=== PATIENT | male | born 1960 | race Hispanic/Latino ===

== ENCOUNTER → 2021-11-28 | Outpatient (CLI) | payer OTHER ==
[2021-11-28 10:29] LABS: BASOPHILS % (AUTO) 0.4 % (0.0-5.0); EOSINOPHILS % (AUTO) 12.2 % (0.0-8.0); HEMATOCRIT 38.7 % (42-54); LYMPHOCYTES % (AUTO) 27.7 % (21.0-51.0); MEAN CORPUSCULAR HEMOGLOBIN 30.2 pg (27.0-33.0); MEAN CORPUSCULAR HGB CONC 32.6 g/dL (32.0-36.0); MEAN CORPUSCULAR VOLUME 92.8 fL (79-99); NEUTROPHILS % (AUTO) 51.5 % (40.0-77.0); PLATELET COUNT (AUTO) 194 K/uL (130-400); RED BLOOD CELL COUNT(AUTO) 4.17 MIL/uL (4.50-6.20); RED CELL DISTRIBUTION WIDTH 11.8 % (11.0-15.5)
[2021-11-28 10:50] LABS: APPEARANCE,URINE CLEAR (CLEAR); BILIRUBIN,URINE NEGATIVE (NEGATIVE); COLOR,URINE YELLOW (YELLOW); GLUCOSE, URINE (UA) NEGATIVE (NEGATIVE); KETONES,URINE NEGATIVE (NEGATIVE); LEUKOCYTE ESTERASE ,URINE NEGATIVE (NEGATIVE); NITRATE,URINE NEGATIVE (NEGATIVE); OCCULT BLOOD,URINE NEGATIVE (NEGATIVE); PROTEIN,URINE NEGATIVE (NEGATIVE); UROBILINOGEN,URINE 0.2 mg/dL (0.2-1.0)
[2021-11-28 11:00] LABS: ALBUMIN 3.7 g/dL (3.5-5.0); BILIRUBIN,TOTAL 0.3 mg/dL (0.2-1.0); CREATININE 0.8 mg/dL (0.5-1.5); POTASSIUM 3.8 mmol/L (3.5-5.1); THYROID STIMULATING HORMONE 0.89 uIU/mL (0.36-3.74)
[2021-11-28 12:26] LABS: ERYTHROCYTE SEDIMENTATION RATE 8 MM/HR (0-20)
== END | disposition home or self-care (01) ==
LOC: LAB 09:43
PROVIDERS: ATTEND Nurse Practitioner Family
DX: Z12.5 Encounter for screening for malignant neoplasm of prostate (principal); Z13.1 Encounter for screening for diabetes mellitus; Z13.220 Encounter for screening for lipoid disorders; Z13.29 Encounter for screening for other suspected endocrine disorder; Z13.21 Encounter for screening for nutritional disorder; I10 Essential (primary) hypertension
CPT/HCPCS: 36415; 80053; 80061; 81003; 82306; 84153; 84154; 84439; 84443; 85025; 85651

== ENCOUNTER → 2023-07-25 | Outpatient (CLI) | payer OTHER ==
[2023-07-25 11:30] LABS: ALBUMIN 3.7 g/dL (3.5-5.0); BILIRUBIN,TOTAL 0.5 mg/dL (0.2-1.0); CREATININE 0.9 mg/dL (0.5-1.5); POTASSIUM 3.6 mmol/L (3.5-5.1); TOTAL PROTEIN, SERUM 7.2 g/dL (6.0-8.3)
== END | disposition home or self-care (01) ==
LOC: LAB 10:19
PROVIDERS: ATTEND Nurse Practitioner Family
DX: K42.9 Umbilical hernia without obstruction or gangrene (principal)
CPT/HCPCS: 36415; 80053

== ENCOUNTER → 2023-07-29 | Outpatient (CLI) | payer OTHER ==
[~2023-07-29] MED LIST: IOHEXOL-350 75 ML VIAL IV ONE
== END | disposition home or self-care (01) ==
LOC: RAH 09:49
PROVIDERS: ATTEND Nurse Practitioner Family
DX: K42.9 Umbilical hernia without obstruction or gangrene (principal); M62.89 Other specified disorders of muscle; M47.815 Spondylosis without myelopathy or radiculopathy, thoracolumbar region; K76.0 Fatty (change of) liver, not elsewhere classified
CPT/HCPCS: 74178; Q9967

== ENCOUNTER → 2023-11-21 | Outpatient (CLI) | payer OTHER ==
[2023-11-21 11:54] LABS: BASOPHILS # (AUTO) 0.03 K/uL (0.00-0.20); BASOPHILS % (AUTO) 0.4 % (0.0-5.0); EOSINOPHILS # (AUTO) 0.84 K/uL (0.00-0.70); EOSINOPHILS % (AUTO) 10.3 % (0.0-8.0); HEMATOCRIT 40.8 % (42-54); IMMATURE GRANULOCYTE ABSOLUTE 0.02 K/uL (0-1); LYMPHOCYTES # (AUTO) 1.8 K/uL (1.0-4.8); LYMPHOCYTES % (AUTO) 22.1 % (21.0-51.0); MEAN CORPUSCULAR HEMOGLOBIN 31.2 pg (27.0-33.0); MEAN CORPUSCULAR HGB CONC 33.8 g/dL (32.0-36.0); MEAN CORPUSCULAR VOLUME 92.1 fL (79-99); MONOCYTES # (AUTO) 0.5 K/uL (0.1-1.0); MONOCYTES % (AUTO) 6.5 % (3.0-13.0); NEUTROPHILS # (AUTO) 4.9 K/uL (1.8-7.7); NEUTROPHILS % (AUTO) 60.5 % (40.0-77.0); PLATELET COUNT (AUTO) 221 K/uL (130-400); RED BLOOD CELL COUNT(AUTO) 4.43 MIL/uL (4.50-6.20); RED CELL DISTRIBUTION WIDTH 11.9 % (11.0-15.5); WHITE BLOOD COUNT (AUTO) 8.1 K/uL (4.8-10.8)
[2023-11-21 11:56] LABS: APPEARANCE,URINE CLEAR (CLEAR); BILIRUBIN,URINE NEGATIVE (NEGATIVE); COLOR,URINE LIGHT-YELLOW (YELLOW); GLUCOSE, URINE (UA) NEGATIVE (NEGATIVE); KETONES,URINE NEGATIVE (NEGATIVE); LEUKOCYTE ESTERASE ,URINE NEGATIVE Leu/uL (NEGATIVE); NITRATE,URINE NEGATIVE (NEGATIVE); OCCULT BLOOD,URINE NEGATIVE (NEGATIVE); PH,URINE 6.5 (5.0-8.0); PROTEIN,URINE NEGATIVE (NEGATIVE); UROBILINOGEN,URINE 0.2 mg/dL (0.2-1.0)
[2023-11-21 12:01] LABS: ADD UA MICROSCOPIC NO
[2023-11-21 12:28] LABS: ALBUMIN 4.2 g/dL (3.5-5.0); BILIRUBIN,TOTAL 0.7 mg/dL (0.2-1.0); CREATININE 0.8 mg/dL (0.5-1.5); POTASSIUM 3.5 mmol/L (3.5-5.1); THYROID STIMULATING HORMONE 1.31 uIU/mL (0.36-3.74); TOTAL PROTEIN, SERUM 7.7 g/dL (6.0-8.3)
[2023-11-21 13:14] LABS: ERYTHROCYTE SEDIMENTATION RATE 6 MM/HR (0-20)
== END | disposition home or self-care (01) ==
LOC: LAB 11:05
PROVIDERS: ATTEND Nurse Practitioner Family
DX: Z00.00 Encounter for general adult medical examination without abnormal findings (principal); Z13.220 Encounter for screening for lipoid disorders; Z13.29 Encounter for screening for other suspected endocrine disorder; Z13.21 Encounter for screening for nutritional disorder; I10 Essential (primary) hypertension; N40.0 Benign prostatic hyperplasia without lower urinary tract symptoms; R73.09 Other abnormal glucose
CPT/HCPCS: 36415; 80053; 80061; 81003; 82306; 83036; 83525; 84439; 84443; 84481; 85025; 85651

== ENCOUNTER → 2024-05-17 | Outpatient (CLI) | payer OTHER | END | disposition home or self-care (01) | LOC: RAH 11:28 | PROVIDERS: ATTEND Nurse Practitioner Family | DX: Z13.6 Encounter for screening for cardiovascular disorders (principal) | CPT/HCPCS: 75571 ==

== ENCOUNTER → 2024-09-21 | Outpatient (CLI) | payer OTHER ==
[2024-09-21 09:29] LABS: BASOPHILS # (AUTO) 0.02 K/uL (0.00-0.20); BASOPHILS % (AUTO) 0.3 % (0.0-5.0); EOSINOPHILS # (AUTO) 1.66 K/uL (0.00-0.70); EOSINOPHILS % (AUTO) 24.5 % (0.0-8.0); HEMATOCRIT 37.4 % (42-54); IMMATURE GRANULOCYTE ABSOLUTE 0.02 K/uL (0-1); LYMPHOCYTES # (AUTO) 1.5 K/uL (1.0-4.8); LYMPHOCYTES % (AUTO) 22.6 % (21.0-51.0); MEAN CORPUSCULAR HEMOGLOBIN 31.3 pg (27.0-33.0); MEAN CORPUSCULAR HGB CONC 33.7 g/dL (32.0-36.0); MEAN CORPUSCULAR VOLUME 92.8 fL (79-99); MONOCYTES # (AUTO) 0.5 K/uL (0.1-1.0); MONOCYTES % (AUTO) 7.7 % (3.0-13.0); NEUTROPHILS % (AUTO) 44.6 % (40.0-77.0); PLATELET COUNT (AUTO) 193 K/uL (130-400); RED BLOOD CELL COUNT(AUTO) 4.03 MIL/uL (4.50-6.20); RED CELL DISTRIBUTION WIDTH 12.2 % (11.0-15.5); WHITE BLOOD COUNT (AUTO) 6.8 K/uL (4.8-10.8)
[2024-09-21 09:33] LABS: APPEARANCE,URINE CLEAR (CLEAR); BILIRUBIN,URINE NEGATIVE (NEGATIVE); COLOR,URINE YELLOW (YELLOW); GLUCOSE, URINE (UA) NEGATIVE (NEGATIVE); KETONES,URINE NEGATIVE (NEGATIVE); LEUKOCYTE ESTERASE ,URINE NEGATIVE Leu/uL (NEGATIVE); NITRATE,URINE NEGATIVE (NEGATIVE); OCCULT BLOOD,URINE NEGATIVE (NEGATIVE); PH,URINE 5.5 (5.0-8.0); PROTEIN,URINE 20 mg/dL (NEGATIVE)
[2024-09-21 09:34] LABS: ADD UA MICROSCOPIC YES
[2024-09-21 09:36] LABS: MUCUS,URINE MOD LPF (None Seen); RBC,URINE 0-1 /HPF (0-1); WBC,URINE 0-1 /HPF (0-1)
[2024-09-21 09:42] LABS: ALBUMIN 3.6 g/dL (3.5-5.0); BILIRUBIN,TOTAL 0.3 mg/dL (0.2-1.0); POTASSIUM 3.8 mmol/L (3.5-5.1); TOTAL PROTEIN, SERUM 6.9 g/dL (6.0-8.3)
[2024-09-21 09:48] LABS: INR <= 0.93 (0.85-1.15); PROTHROMBIN TIME 10.2 SEC (9.6-11.6)
[2024-09-21 09:49] LABS: PARTIAL THROMBOPLASTIN TIME 26.8 SEC (26.3-35.5)
--- NOTE | 2024-09-21 11:17 | HMCIMG ---
CHEST 2VWS REASON: PRE-OP CXR COMPARISON: 02/01/2010 FINDINGS: Two views of the chest were obtained. Lungs are clear. Heart size is normal. There is no pulmonary vascular congestion. Mediastinum and bony thorax appear unremarkable. IMPRESSION: Normal two view chest x-ray.
== END | disposition home or self-care (01) ==
LOC: LAB 08:49
PROVIDERS: ATTEND Nurse Practitioner Family
DX: Z01.818 Encounter for other preprocedural examination (principal); I10 Essential (primary) hypertension; E78.00 Pure hypercholesterolemia, unspecified; M17.12 Unilateral primary osteoarthritis, left knee
CPT/HCPCS: 36415; 71046; 80053; 81001; 85025; 85610; 85730

== ENCOUNTER 2024-10-14 07:40 | Observation (INO) | payer OTHER ==
[2024-10-13 13:28] VITALS: BP 147/88; PULSE 66; RESP 16; TEMP 97.4
[2024-10-13 13:30] LABS: BASOPHILS # (AUTO) 0.03 K/uL (0.00-0.20); BASOPHILS % (AUTO) 0.4 % (0.0-5.0); EOSINOPHILS # (AUTO) 0.96 K/uL (0.00-0.70); EOSINOPHILS % (AUTO) 14.3 % (0.0-8.0); HEMATOCRIT 37.2 % (42-54); IMMATURE GRANULOCYTE ABSOLUTE 0.02 K/uL (0-1); LYMPHOCYTES # (AUTO) 1.4 K/uL (1.0-4.8); LYMPHOCYTES % (AUTO) 21.4 % (21.0-51.0); MEAN CORPUSCULAR HEMOGLOBIN 31.1 pg (27.0-33.0); MEAN CORPUSCULAR HGB CONC 33.6 g/dL (32.0-36.0); MEAN CORPUSCULAR VOLUME 92.5 fL (79-99); MONOCYTES # (AUTO) 0.4 K/uL (0.1-1.0); MONOCYTES % (AUTO) 6.5 % (3.0-13.0); NEUTROPHILS # (AUTO) 3.8 K/uL (1.8-7.7); NEUTROPHILS % (AUTO) 57.1 % (40.0-77.0); PLATELET COUNT (AUTO) 197 K/uL (130-400); RED BLOOD CELL COUNT(AUTO) 4.02 MIL/uL (4.50-6.20); RED CELL DISTRIBUTION WIDTH 11.8 % (11.0-15.5); WHITE BLOOD COUNT (AUTO) 6.7 K/uL (4.8-10.8)
[2024-10-13 14:21] LABS: APPEARANCE,URINE CLEAR (CLEAR); BILIRUBIN,URINE NEGATIVE (NEGATIVE); COLOR,URINE LIGHT-YELLOW (YELLOW); GLUCOSE, URINE (UA) NEGATIVE (NEGATIVE); KETONES,URINE NEGATIVE (NEGATIVE); LEUKOCYTE ESTERASE ,URINE NEGATIVE Leu/uL (NEGATIVE); NITRATE,URINE NEGATIVE (NEGATIVE); OCCULT BLOOD,URINE NEGATIVE (NEGATIVE); PH,URINE 6.5 (5.0-8.0); PROTEIN,URINE 20 mg/dL (NEGATIVE); UROBILINOGEN,URINE 0.2 mg/dL (0.2-1.0)
[2024-10-13 14:23] LABS: ADD UA MICROSCOPIC YES
[2024-10-13 14:33] LABS: MUCUS,URINE RARE LPF (None Seen); WBC,URINE 0-1 /HPF (0-1)
--- NOTE | 2024-10-13 16:34 | NUR ---
RE: LABS REPORTED HGB 12.5/HCT 37.2 AND UA RESULTS, NO NEW ORDERS RECEIVED.
[2024-10-14] VITALS (37 sets, daily range): BP systolic 98–173; BP diastolic 58–95; PULSE 61–106; RESP 15–19; TEMP 97.2–97.9; O2SAT 97
[~2024-10-14] VITALS: Ht 180.3 cm; Wt 124.3 kg
[~2024-10-14 07:40] MED LIST changes: +ALBU2.5V2 IH; +CLON0.5T23 PO; +DIPH25CA53 PO; +HYDR-3421 PO; +HYDR12.54 PO; -IOHEXOL-350 75 ML VIAL IV ONE; +LOSA50TA64 PO; +PANT40TA54 PO; +PROP225T3 PO; +TAMS-1 PO; +TRAM50TA4 PO
[2024-10-14] MEDS ORDERED: LACTATED RINGERS 1000ML IV SCH (08:00)
[2024-10-14] MEDS: ceFAZolin SODIUM 2 GM VIAL ONE (08:09)
[2024-10-14] MEDS: LACTATED RINGERS 1000ML 1,000 ML IV ONE (08:09)
[2024-10-14] MEDS ORDERED: dexaMETHasone SOD PHOSPHATE 10MG/ML 1ML VIAL ONE ×2 (09:11→12:05)
[2024-10-14] MEDS ORDERED: ondanSETRON 4MG INJ ONE ×2 (09:11→09:13)
[2024-10-14] MEDS ORDERED: LIDOCAINE PF 100MG/5ML (2%) SYRINGE 5ML ONE (09:11)
[2024-10-14] MEDS ORDERED: rocuRONium bROMide 10MG/1ML 5ML VL ONE ×2 (09:12→12:16)
[2024-10-14] MEDS ORDERED: MIDAZOLAM HCL 1 MG/ML 2ML VIAL ONE (09:12)
[2024-10-14] MEDS ORDERED: FENTanyl CITRate PF 50 MCG/1 ML 2ML VIAL ONE ×2 (09:12→13:59)
[2024-10-14] MEDS ORDERED: proPOFol 10 MG/ML 20ML VIAL IV ONE (09:12)
[2024-10-14] MEDS ORDERED: GLYCOPYRROLATE 0.2 MG/ML 5 ML VIAL ONE (09:16)
[2024-10-14] MEDS ORDERED: NEOSTIGMINE METHYLSULFATE 1MG/ML IV ONE (09:16)
[2024-10-14] MEDS ORDERED: ROPivacaine 0.5% 5MG/ML 30ML ONE (09:41)
[2024-10-14] MEDS ORDERED: phenylEPHRINE HCL 10 MG/ML 1ML VIAL IV ONE (12:09)
[2024-10-14] MEDS: TRANEXAMIC ACID 1000MG/10ML ONE (12:15)
[2024-10-14] MEDS ORDERED: ePHEDrine SULFate 50 MG/ML AMPULE ONE (12:19)
[2024-10-14] MEDS: ceFAZolin SODIUM 1 GM VIAL ONE (12:45)
[2024-10-14] MEDS: VANCOMYCIN 500MG+NS 100ML 100 ML IV ONE (12:45)
--- NOTE | 2024-10-14 14:17 | OP ---
Operative Note: DATE OF PROCEDURE: 10/14/24 SURGEON: JAMAAL GARCIA MD HOME VISITS NURSE: [Elena Joseph CST] ANESTHESIA: [General anesthesia] ANESTHESIOLOGIST/FENDER FINISHER: [Chapo Denny CRNA] PREOPERATIVE DIAGNOSIS: [Left knee osteoarthritis] POSTOPERATIVE DIAGNOSIS: [Left knee osteoarthritis] IMPLANTS: [Biomet vanguard. Femur size 70 left PS. Tibia size 83 fixed cruciate. Tibial liner size 10 by 79/83 PS. Patella size 34 X 9] PROCEDURE: [Left total knee arthroplasty] ESTIMATED BLOOD LOSS: [Chondral and 50 mL] INDICATIONS: [The patient is a 64-year-old male with a history of osteoarthritis of the left knee that has not responded to conservative treatment, the patient is being admitted for a total knee arthroplasty. Procedure understood, risks, benefits and possible complications and the patient agreed signed the consent form.] DESCRIPTION OF PROCEDURE: [After adequate general anesthesia was achieved and regional block obtained the left lower extremity was prepped and draped in the usual manner previous placement of the tourniquet in the proximal thigh. The extremity was then elevated and exsanguinated with an Esmarch bandage and the tourniquet inflated to 250 mmHg the Esmarch band been then removed. With the knee in flexion a longitudinal incision was then made in the anterior aspect through the skin followed by dissection of the subcutaneous tissue. With the use of a bone infusion needle we proceeded then to penetrate medial to the tibial tuberosity and a solution of 50 mL of normal saline with 500 mg of vancomycin was then injected into the proximal metaphysis of the tibia. The bone infusion needle was then removed. A paramedian approach was then made with the Bovie cautery cutting through the quadriceps tendon, medial patellar retinaculum and patellar tendon retinaculum. The retropatellar tendon fat was then excised and the soft tissue elements of the tibia were elevated subperiosteally and retractors were applied medially and laterally . The anterior and posterior cruciate ligaments were resected. With the use of a drill a starting hole was made in the distal femur entering the intramedullary canal and then after removal of the drill an intramedullary guide was inserted with a 5 degree valgus block that touched the distal femur and to this the distal femoral cutting guide was then applied anteriorly and was secured to the distal femur with the use of pins. The intramedullary guide was then removed and with the use of the oscillating saw we proceeded to resect the distal femur removing the fragments and the guide. The femoral sizer was then applied distally and drill holes were made removing the sizer and the 4-in-1 cutting block was then inserted and the anterior, posterior and chamfer cuts were made removing the fragments and the block. The posterior cruciate ligament retractor was then inserted posterior to the tibia and this was brought forward proceeding then to apply the external tibial alignment guide and secured the proximal cutting guide to the tibia with the use of pins. With the use of the oscillating saw the proximal cut to the tibia tibia was made. The bone fragment was removed and the trial tibia plate was chosen. At this point the menisci were removed sharply and with the use of the curved osteotome the posterior osteophytes of the femur were removed. The PS cutting guide was then inserted and the intercondylar cut was made removing the fragment and the guide. The trial components were then inserted at the femur and tibia with a trial tibial liner bringing the knee into extension noticing that the patient had a very stable knee in flexion, extension and with valgus and varus stress. The knee was maintained in extension and the patella was then addressed proceeding to measure its thickness and then with the use of the oscillating saw we removed 9 mm from the articular surface and restored the height with application of a trial component after 3 peg holes were made. The patellofemoral ligament was removed and then the patellofemoral tracking was checked noticing to be normal. At this moment all the components were removed, the tibia after the metaphyseal defect was created and while cement was being mixed on the back table we proceeded to irrigate the joint with antibiotic solution and then cover the en try to the femoral canal with a bone plug. Once the cement was ready we proceeded to apply it first to the tibia surface inserting the final component and then to the femoral surface and inserted the final component removing the excess cement and then applying a trial liner bringing the knee into extension for compression. Then we proceeded to irrigate the patella surface and dried it applying then bone cement and the final patellar component was inserted and was secured with application of a clamp. The joint was irrigated with a warm diluted Betadine solution while the cement dried followed by irrigation with antibiotic solution. The trial liner was removed as well as the patellar clamp and we proceeded then to irrigate the posterior aspect of the joint to remove all the remaining debris and the final tibial liner was inserted and locked against the tibia . The range of motion was checked and noticed to be adequate with full extension and flexion, mild laxity in valgus or varus stress and with adequate patellofemoral tracking. The patient had no anterior or posterior drawer. The tourniquet was deflated and bleeders were controlled with the use of the Bovie cautery. After further irrigation the wound was then closed with approximation of the quadriceps tendon, patellar retinaculum and patellar tendon retinaculum with #1 Vicryl close stitches alternating with #1 Ethibond stitch es. Closure of the subcutaneous tissue with 2-0 Monocryl inverted stitches and the skin was closed with 3-0 Monocryl subcuticularly. The wound was covered with a suction dressing followed by application of an Deepak bandage for compression and the drapes were then removed transferring the patient to the hospital bed and taken to recovery room for follow-up by anesthesia. There were no complications during the procedure.] JAMAAL GARCIA MD Oct 14, 2024 14:17
[2024-10-14] MEDS ORDERED: CALCIUM CARB 500MG PO PRN (14:30)
[2024-10-14] MEDS ORDERED: PoTASSium chloRIDE 20MEQ ER 20 MEQ ERTAB PO PRN (14:30)
[2024-10-14] MEDS ORDERED: FERROUS FUMARATE 324 MG TABLET PO PRN (14:30)
[2024-10-14] MEDS ORDERED: DiphenhydrAMINE HCL 50 MG/ML VIAL IVP PRN (14:30)
[2024-10-14] MEDS ORDERED: OXYcodONE HCL 5 MG TAB PO PRN ×2 (14:30)
[2024-10-14] MEDS ORDERED: PoTASSium chl 10% ELIXIR 20MEQ 20 MEQ/15 ML UDCUP PO PRN (14:30)
[2024-10-14] MEDS ORDERED: PoTASSium chloRIDE 20MEQ/100ML 100 ML IV PRN (14:30)
[2024-10-14] MEDS: MEPERIDINE-PF 25 MG/ML SYG ONE (15:12)
[2024-10-14] MEDS: MEPERIDINE-PF 50 MG/ML SYG ONE (15:18)
[2024-10-14] MEDS: FENTanyl CITRate PF 50 MCG/1 ML 2ML VIAL ONE (15:52)
[2024-10-14] MEDS: ondanSETRON 4MG INJ ONE (15:54)
[2024-10-14] MEDS: ketOROlac 15MG/ML VIAL (15MG/ML) IV PRN (17:35)
[2024-10-14] MEDS: ondanSETRON 4MG INJ IVP PRN (17:36)
[2024-10-14] MEDS: 0.9%NACL 1000ML 1,000 ML IV SCH (18:36)
[2024-10-14] MEDS ORDERED: ALBUTEROL 0.083% 2.5 MG/3 ML INH IH PRN (20:00)
[2024-10-14] MEDS: TEMAZepam 15 MG CAPSULE PO PRN (20:04)
[2024-10-14] MEDS: ASPIRIN 81 MG EC TAB PO SCH (20:04)
[2024-10-14] MEDS: FAMOTIDINE 20MG TAB PO SCH (20:04)
[2024-10-14] MEDS: NAPROXEN 500 MG TABLET PO SCH (20:04)
[2024-10-14] MEDS: doCUSate SODIUM 100 MG CAP PO SCH (20:04)
[2024-10-14] MEDS: ceFAZolin SODIUM 2 GM VIAL IVPB SCH (20:04)
--- NOTE | 2024-10-14 20:50 | NUR ---
MEDICATION PATIENT AWAKE AND ALERT SITTING UP ON EDGE OF BED. NO COMPLAINTS OF PAIN VOICED AT THIS TIME. PATIENT STATES HE CANNOT TAKE NAPROXEN BECAUSE IT CONSTIPATES HIM AND HE WOULD RATHER TAKE HIS HOME MEDICATION TRAMADOL. WAS CALLED AND AWARE. NEW ORDERS RECEIVED FOR TRAMADOL 50MG PO Q6H PRN AND CARRIED OUT. PATIENT AWARE. RESP EVEN AND UNLABORED. NO SOB NOTED. ON ROOM AIR. VITALS STABLE. AFEBRILE. NO NAUSEA OR VOMITING NOTED. SCDS IN PLACE. CALL LIGHT WITHIN REACH. NO SIGNS OF DISTRESS NOTED UPON EXITING THE ROOM. Addendum: 10/14/24 at 0143 by BAILEY BROWN RN RN Amended: Links added.
[2024-10-14] MEDS ORDERED: DiphenhydrAMINE HCL 25 MG CAPSULE PO PRN (21:00)
[2024-10-14] MEDS: PROPAFENONE HCL 150 MG TABLET PO SCH (21:00)
[2024-10-14] MEDS: LoSARTan 50 MG TABLET PO SCH (21:00)
[2024-10-14] MEDS: clonazePAM 0.5 MG TABLET PO SCH (21:52)
[2024-10-14] MEDS: hydrOXYzine 25 MG TABLET PO SCH (21:53)
[2024-10-14] MEDS: tamSULOsin HCL 0.4 MG CAP.ER.24H PO SCH (21:53)
[2024-10-14] MEDS: PANTOPrazole 40 MG TAB DR PO SCH (21:53)
[2024-10-14] MEDS: traMADol HCL 50 MG TABLET PO PRN (21:53)
[2024-10-15] VITALS (7 sets, daily range): BP systolic 113–129; BP diastolic 58–69; PULSE 68–91; RESP 18–20; TEMP 97.8–98.4; O2SAT 98
--- NOTE | 2024-10-15 04:30 | NUR ---
PAIN PATIENT AWAKE AND ALERT ON CELL PHONE IN BED. IN GOOD SPIRITS. PATIENT MEDICATED FOR COMPLAINTS OF LEFT KNEE PAIN WITH TRAMADOL 50MG PO. RESP EVEN AND UNLABORED. NO SOB NOTED. ON ROOM AIR. VITALS STABLE. AFEBRILE. VOIDING WITHOUT DIFFICULTY. CALL LIGHT WITHIN REACH. NO SIGNS OF DISTRESS NOTED UPON EXITING THE ROOM. Addendum: 10/15/24 at 0541 by BAILEY BROWN RN RN Amended: Links added.
[2024-10-15 05:36] LABS: HEMATOCRIT 31.6 % (42-54); MEAN CORPUSCULAR HEMOGLOBIN 30.9 pg (27.0-33.0); MEAN CORPUSCULAR HGB CONC 33.9 g/dL (32.0-36.0); MEAN CORPUSCULAR VOLUME 91.3 fL (79-99); RED BLOOD CELL COUNT(AUTO) 3.46 MIL/uL (4.50-6.20); RED CELL DISTRIBUTION WIDTH 11.8 % (11.0-15.5); WHITE BLOOD COUNT (AUTO) 8.5 K/uL (4.8-10.8)
[2024-10-15 05:42] LABS: CREATININE 0.9 mg/dL (0.5-1.3); POTASSIUM 3.7 mmol/L (3.5-5.1)
[2024-10-15] MEDS: tamSULOsin HCL 0.4 MG CAP.ER.24H PO SCH (09:36)
[2024-10-15] MEDS: hydroCHLOROthiazide 25 MG TABLET PO SCH (09:36)
[2024-10-15] MEDS: polyETHYLene GLYCol 3350 17 GM POWD.PACK PO SCH (09:38)
[2024-10-15] MEDS: OXYcodONE HCL 5 MG TAB PO PRN (09:40)
--- NOTE | 2024-10-15 10:08 | PN ---
Ortho postop day one. Patient upon entering the room is dangling at the bedside reporting adequate pain control. He does state that he feels the in and out catheter that they did after surgery irritated his prostate. He does have a history of prostatitis and states that he just feels pressure but is able to void without difficulty. Otherwise he is alert. No acute distress. Vital signs are stable. Afebrile. Laboratory results reviewed. Noted to have a drop in hemoglobin and hematocrit as expected after total knee arthroplasty. Patient currently asymptomatic. We will address per protocol as necessary. Deepak bandage has been removed from the operative site and the PICCO dressing is intact. Gastrocnemius soft nontender. Negative Homans. Distal neurovascular exam intact. Operative findings discussed with the patient. Is pending physical therapy this morning. Anticipated discharge goal for patient is home health/PT. Assessment: Status post left total knee arthroplasty. Asymptomatic acute postoperative blood loss anemia. Plan: Continue with Dr. Glass TKA protocol and discharge planning. Asymptomatic acute postoperative blood loss anemia addressed per protocol. Vitals/Labs Vital Signs Date Time Temp Pulse Resp B/P (MAP) Pulse Ox O2 Delivery O2 Flow Rate FiO2 10/15/24 08:00 98.4 90 18 124/69 98 Room Air 10/15/24 06:45 21 10/14/24 20:00 0 Laboratory Tests 10/15/24 05:26 Medications Current Medications Cefazolin Sodium 2 gm STK-MED ONCE .ROUTE Last administered on 10/14/24at 12:10; Start 10/14/24 at 07:42; Stop 10/14/24 at 07:42; Status DC Lactated Ringer's 1,000 ml @ As Directed STK-MED ONCE IV Last administered on 10/14/24at 08:09; Start 10/14/24 at 07:42; Stop 10/14/24 at 07:43; Status DC Lactated Ringer's 1,000 ml KVO IV; Start 10/14/24 at 08:00; Stop 11/13/24 at 07:59 Lidocaine HCl 100 mg STK-MED ONCE .ROUTE; Start 10/14/24 at 09:11; Stop 10/14/24 at 09:12; Status DC Ondansetron HCl 4 mg STK-MED ONCE .ROUTE; Start 10/14/24 at 09:11; Stop 10/14/24 at 09:12; Status DC Dexamethasone Sodium Phosphate 10 mg STK-MED ONCE .ROUTE; Start 10/14/24 at 09:11; Stop 10/14/24 at 09:12; Status DC Propofol 200 mg STK-MED ONCE IV; Start 10/14/24 at 09:12; Stop 10/14/24 at 09:12; Status DC Midazolam HCl 2 mg STK-MED ONCE .ROUTE; Start 10/14/24 at 09:12; Stop 10/14/24 at 09:12; Status DC Rocuronium Kaltag 50 mg STK-MED ONCE .ROUTE; Start 10/14/24 at 09:12; Stop 10/14/24 at 09:13; Status DC Fentanyl Citrate 100 mcg STK-MED ONCE .ROUTE; Start 10/14/24 at 09:12; Stop 10/14/24 at 09:13; Status DC Ondansetron HCl 4 mg STK-MED ONCE .ROUTE; Start 10/14/24 at 09:13; Stop 10/14/24 at 09:13; Status DC Glycopyrrolate 1 mg STK-MED ONCE .ROUTE; Start 10/14/24 at 09:16; Stop 10/14/24 at 09:17; Status DC Neostigmine Methylsulfate 10 mg STK-MED ONCE IV; Start 10/14/24 at 09:16; Stop 10/14/24 at 09:17; Status DC Ropivacaine 150 mg STK-MED ONCE .ROUTE; Start 10/14/24 at 09:41; Stop 10/14/24 at 09:41; Status DC Cefazolin Sodium 1 gm STK-MED ONCE .ROUTE Last administered on 10/14/24at 12:45; Start 10/14/24 at 10:02; Stop 10/14/24 at 10:02; Status DC Vancomycin HCl 100 ml @ As Directed STK-MED ONCE IV Last administered on 10/14/24at 12:45; Start 10/14/24 at 10:02; Stop 10/14/24 at 10:02; Status DC Tranexamic Acid 1,000 mg STK-MED ONCE .ROUTE Last administered on 10/14/24at 12:15; Start 10/14/24 at 10:08; Stop 10/14/24 at 10:08; Status DC Dexamethasone Sodium Phosphate 10 mg STK-MED ONCE .ROUTE; Start 10/14/24 at 12:05; Stop 10/14/24 at 12:05; Status DC Phenylephrine HCl 10 mg STK-MED ONCE IV; Start 10/14/24 at 12:09; Stop 10/14/24 at 12:09; Status DC Rocuronium Kaltag 50 mg STK-MED ONCE .ROUTE; Start 10/14/24 at 12:16; Stop 10/14/24 at 12:17; Status DC Ephedrine Sulfate 50 mg STK-MED ONCE .ROUTE; Start 10/14/24 at 12:19; Stop 10/14/24 at 12:20; Status DC Fentanyl Citrate 100 mcg STK-MED ONCE .ROUTE; Start 10/14/24 at 13:59; Stop 10/14/24 at 13:59; Status DC Sodium Chloride 1,000 ml @ 100 mls/hr Q10H IV Last administered on 10/14/24at 18:36; Start 10/14/24 at 14:30; Stop 10/15/24 at 14:29 Polyethylene Glycol 17 gm DAILY PO Last administered on 10/15/24at 09:38; Start 10/15/24 at 09:00; Stop 11/14/24 at 08:59 Bisacodyl 10 mg DAILY PRN RC; Start 10/17/24 at 14:30; Stop 11/16/24 at 14:29 Ketorolac Tromethamine 15 mg Q6H PRN IV Last administered on 10/15/24at 00:19; Start 10/14/24 at 14:30; Stop 10/19/24 at 14:29 Famotidine 20 mg BID PO Last administered on 10/15/24at 09:36; Start 10/14/24 at 21:00; Stop 11/13/24 at 20:59 Tamsulosin HCl 0.4 mg DAILY PO Last administered on 10/15/24at 09:36; Start 10/15/24 at 09:00; Stop 11/14/24 at 08:59 Ferrous Fumarate 324 mg DAILY PRN PO; Start 10/14/24 at 14:30; Stop 11/13/24 at 14:29 Temazepam 15 mg HS PRN PO Last administered on 10/14/24at 20:04; Start 10/14/24 at 14:30; Stop 11/13/24 at 14:29 Ondansetron HCl 4 mg Q6H PRN IVP Last administered on 10/15/24at 09:40; Start 10/14/24 at 14:30; Stop 11/13/24 at 14:29 Calcium Carbonate 500 mg Q12H PRN PO; Start 10/14/24 at 14:30; Stop 11/13/24 at 14:29 Diphenhydramine HCl 25 mg Q6H PRN IVP; Start 10/14/24 at 14:30; Stop 11/13/24 at 14:29 Cefazolin Sodium 2 gm Q8H IVPB Last administered on 10/15/24at 04:17; Start 10/14/24 at 19:30; Stop 10/15/24 at 03:31; Status DC Docusate Sodium 100 mg BID PO Last administered on 10/15/24at 09:35; Start 10/14/24 at 21:00; Stop 11/13/24 at 20:59 Potassium Chloride 100 ml @ 100 mls/hr AD PRN IV; Start 10/14/24 at 14:30; Stop 11/13/24 at 14:29 Potassium Chloride 20 meq AD PRN PO; Start 10/14/24 at 14:30; Stop 11/13/24 at 14:29 Potassium Chloride 20 meq AD PRN PO; Start 10/14/24 at 14:30; Stop 11/13/24 at 14:29 Oxycodone HCl 5 mg Q4H PRN PO; Start 10/14/24 at 14:30; Stop 10/14/24 at 14:28; Status DC Oxycodone HCl 10 mg Q4H PRN PO; Start 10/14/24 at 14:30; Stop 10/14/24 at 14:28; Status DC Naproxen 500 mg BID PO Last administered on 10/14/24at 20:04; Start 10/14/24 at 21:00; Stop 10/14/24 at 20:19; Status DC Aspirin 81 mg BID PO Last administered on 10/15/24at 09:35; Start 10/14/24 at 21:00; Stop 11/13/24 at 20:59 Meperidine HCl 25 mg STK-MED ONCE .ROUTE Last administered on 10/14/24at 15:12; Start 10/14/24 at 14:58; Stop 10/14/24 at 14:58; Status DC Meperidine HCl 50 mg STK-MED ONCE .ROUTE Last administered on 10/14/24at 15:18; Start 10/14/24 at 15:16; Stop 10/14/24 at 15:16; Status DC Fentanyl Citrate 100 mcg STK-MED ONCE .ROUTE Last administered on 10/14/24at 15:52; Start 10/14/24 at 15:50; Stop 10/14/24 at 15:50; Status DC Ondansetron HCl 4 mg STK-MED ONCE .ROUTE Last administered on 10/14/24at 15:54; Start 10/14/24 at 15:52; Stop 10/14/24 at 15:53; Status DC Albuterol Sulfate 2.5 mg Q6H PRN IH; Start 10/14/24 at 20:00; Stop 11/13/24 at 19:59 Hydroxyzine HCl 25 mg HS PO Last administered on 10/14/24at 21:53; Start 10/14/24 at 21:00; Stop 11/13/24 at 20:59 Losartan Potassium 50 mg BID PO Last administered on 10/15/24at 09:35; Start 10/14/24 at 21:00; Stop 11/13/24 at 20:59 Pantoprazole Sodium 40 mg HS PO Last administered on 10/14/24at 21:53; Start 10/14/24 at 21:00; Stop 11/13/24 at 20:59 Tamsulosin HCl 0.4 mg HS PO Last administered on 10/14/24at 21:53; Start 10/14/24 at 21:00; Stop 11/13/24 at 20:59 Clonazepam 0.5 mg HS PO Last administered on 10/14/24at 21:52; Start 10/14/24 at 21:00; Stop 11/13/24 at 20:59 Diphenhydramine HCl 25 mg HS PRN PO; Start 10/14/24 at 21:00; Stop 11/13/24 at 20:59 Hydrochlorothiazide 12.5 mg DAILY PO Last administered on 10/15/24at 09:36; Start 10/15/24 at 09:00; Stop 11/14/24 at 08:59 Propafenone HCl 225 mg BID PO Last administered on 10/15/24at 09:37; Start 10/14/24 at 21:00; Stop 11/13/24 at 20:59 Tramadol HCl 50 mg Q6H PRN PO Last administered on 10/14/24at 21:53; Start 10/14/24 at 20:30; Stop 10/19/24 at 20:29 Oxycodone HCl 5 mg Q4H PRN PO; Start 10/15/24 at 09:30; Stop 10/22/24 at 09:29 Oxycodone HCl 10 mg Q4H PRN PO Last administered on 10/15/24at 09:40; Start 10/15/24 at 09:30; Stop 10/22/24 at 09:29 SERENA CHEN NP Oct 15, 2024 10:08
--- NOTE | 2024-10-15 13:50 | NUR ---
[facility] CM MET WITH PT THIS MORNING ASSESSMENT DONE. PATIENT IS INDEPENDENT PRIOR TO SURGERY, LIVES AT HOME WITH HIS GABRIEL. PATIENT STATES HE HAS A WALKER AND NEBULIZER MACHINE. DENIES ANY OTHER EQUIPMENT/SERVICES. FEELS SAFE TO GO BACK HOME, STILL WORK AND DRIVE, ABLE TO ASSIST WITH TRANSPORTATION AND NEEDS NECESSARY. DISCUSSED MD RECOMMENDATIONS FOR HOME W/HOME HEALTH, PT AGREEABLE, CONSENT SIGNED RAH FOR ANY IN [facility]. [facility] HOME W/HH ONCE APPROVED. SENT ORDER, CLINICALS, PT TO [facility] VIA SECURE FAX AND EMAIL, CONFIRMATION RECEIVED. PENDING REP RESPONSE. PT PENDING APPROVAL. CM TO CONTINUE TO FOLLOW UP. Addendum: 10/15/24 at 1352 by BLAKE TSANG LVN Amended: Links added.
--- NOTE | 2024-10-15 18:52 | DS ---
DISCHARGE SUMMARY [ Date of admission: 10/14/24 Date of discharge:10/16/24 Final diagnosis: Left Knee osteoarthritis. Post-op urinary retention Surgical procedures: Left total Knee arthroplasty on 10/14/24 Summary of History and Physical: The patient is a 64 year-old male with history of severe arthrosis to the left knee that has been present for several years and has been treated conservatively with no longer adequate response to treatment. The patient is being admitted for total knee arthroplasty. Previous medical history: BPH, A fib, HTN Previous surgical history: Bilateral knee arthroscopies, Bilateral arm fx ORIF Family history: HTN Social history: Negative for use of tobacco or alcohol. Allergies: NKDA. Review of system: Negative on admission Hospital course: The patient was admitted and taken to the operating room for a total knee arthroplasty, procedure that went uneventful. Postoperatively the patient remained hemodynamically stable and afebrile. The patient received antibiotic and anticoagulation prophylaxis as per protocol. He developed urinary retention that required catheterization X 2. The patient was evaluated by physical therapy and started rehabilitation treatment with ambulation with the use of walker, weightbearing as tolerated, range of motion exercises and bed transfers. The patient was also evaluated by case management and arrangements were made for discharge. The patient tolerated diet well. On postop day #2 all the arrangements were completed. The dressing was intact and the patient was dismissed. Condition on discharge: Good Disposition: The patient will be dismissed home with . Follow-up will be done at the office in 3 weeks. The patient is to continue with physical therapy and rehabilitation at home and be ambulatory with the use of a walker, weightbearing as tolerated. Continue taking pain medication as instructed as well as anticoagulation prophylaxis. Continue with home medications also as instructed and continue with pre admission diet.] JAMAAL GARCIA MD ] JAMAAL GARCIA MD Oct 15, 2024 18:52
[2024-10-16] VITALS: BP 108/65; PULSE 72; RESP 20; TEMP 98.5
[2024-10-16 04:24] VITALS: BP 138/78; PULSE 80; RESP 20; TEMP 98.2
[2024-10-16 08:00] VITALS: BP 120/77; PULSE 85; RESP 18; TEMP 98.4; O2SAT 95
[2024-10-16] MEDS: OXYcodONE HCL 5 MG TAB PO PRN (08:01)
--- NOTE | 2024-10-16 08:42 | NUR ---
BLADDER SCAN Dr. Glass in facility to see patient, c/o incontinence, uncontrol urination, MD request bladder scan to be done, bladder scan done noted with 1041ml retention, MD notified, new order given to in and out.
--- NOTE | 2024-10-16 08:46 | PN ---
POP Day #2. VSS. Afebrile Adequate pain control, having difficulty with urination, seems overflow. The PT has been excellent, patient having good ROM Dressing intact, NV intact Bladder scan 1000 ml. A: S?P L TKA, Urinary retention Plan: Patient refuse placement of [place] but will do in and out. Will dismiss after therapy. Vitals/Labs Vital Signs Date Time Temp Pulse Resp B/P (MAP) Pulse Ox O2 Delivery O2 Flow Rate FiO2 10/16/24 08:00 98.4 85 18 120/77 95 Room Air 10/15/24 20:00 0 21 Medications Current Medications Cefazolin Sodium 2 gm STK-MED ONCE .ROUTE Last administered on 10/14/24at 12:10; Start 10/14/24 at 07:42; Stop 10/14/24 at 07:42; Status DC Lactated Ringer's 1,000 ml @ As Directed STK-MED ONCE IV Last administered on 10/14/24at 08:09; Start 10/14/24 at 07:42; Stop 10/14/24 at 07:43; Status DC Lactated Ringer's 1,000 ml KVO IV; Start 10/14/24 at 08:00; Stop 11/13/24 at 07:59 Lidocaine HCl 100 mg STK-MED ONCE .ROUTE; Start 10/14/24 at 09:11; Stop 10/14/24 at 09:12; Status DC Ondansetron HCl 4 mg STK-MED ONCE .ROUTE; Start 10/14/24 at 09:11; Stop 10/14/24 at 09:12; Status DC Dexamethasone Sodium Phosphate 10 mg STK-MED ONCE .ROUTE; Start 10/14/24 at 09:11; Stop 10/14/24 at 09:12; Status DC Propofol 200 mg STK-MED ONCE IV; Start 10/14/24 at 09:12; Stop 10/14/24 at 09:12; Status DC Midazolam HCl 2 mg STK-MED ONCE .ROUTE; Start 10/14/24 at 09:12; Stop 10/14/24 at 09:12; Status DC Rocuronium [place] 50 mg STK-MED ONCE .ROUTE; Start 10/14/24 at 09:12; Stop 10/14/24 at 09:13; Status DC Fentanyl Citrate 100 mcg STK-MED ONCE .ROUTE; Start 10/14/24 at 09:12; Stop 10/14/24 at 09:13; Status DC Ondansetron HCl 4 mg STK-MED ONCE .ROUTE; Start 10/14/24 at 09:13; Stop 10/14/24 at 09:13; Status DC Glycopyrrolate 1 mg STK-MED ONCE .ROUTE; Start 10/14/24 at 09:16; Stop 10/14/24 at 09:17; Status DC Neostigmine Methylsulfate 10 mg STK-MED ONCE IV; Start 10/14/24 at 09:16; Stop 10/14/24 at 09:17; Status DC Ropivacaine 150 mg STK-MED ONCE .ROUTE; Start 10/14/24 at 09:41; Stop 10/14/24 at 09:41; Status DC Cefazolin Sodium 1 gm STK-MED ONCE .ROUTE Last administered on 10/14/24at 12:45; Start 10/14/24 at 10:02; Stop 10/14/24 at 10:02; Status DC Vancomycin HCl 100 ml @ As Directed STK-MED ONCE IV Last administered on 10/14/24at 12:45; Start 10/14/24 at 10:02; Stop 10/14/24 at 10:02; Status DC Tranexamic Acid 1,000 mg STK-MED ONCE .ROUTE Last administered on 10/14/24at 12:15; Start 10/14/24 at 10:08; Stop 10/14/24 at 10:08; Status DC Dexamethasone Sodium Phosphate 10 mg STK-MED ONCE .ROUTE; Start 10/14/24 at 12:05; Stop 10/14/24 at 12:05; Status DC Phenylephrine HCl 10 mg STK-MED ONCE IV; Start 10/14/24 at 12:09; Stop 10/14/24 at 12:09; Status DC Rocuronium [place] 50 mg STK-MED ONCE .ROUTE; Start 10/14/24 at 12:16; Stop 10/14/24 at 12:17; Status DC Ephedrine Sulfate 50 mg STK-MED ONCE .ROUTE; Start 10/14/24 at 12:19; Stop 10/14/24 at 12:20; Status DC Fentanyl Citrate 100 mcg STK-MED ONCE .ROUTE; Start 10/14/24 at 13:59; Stop 10/14/24 at 13:59; Status DC Sodium Chloride 1,000 ml @ 100 mls/hr Q10H IV Last administered on 10/14/24at 18:36; Start 10/14/24 at 14:30; Stop 10/15/24 at 14:29; Status DC Polyethylene Glycol 17 gm DAILY PO Last administered on 10/16/24at 07:57; Start 10/15/24 at 09:00; Stop 11/14/24 at 08:59 Bisacodyl 10 mg DAILY PRN RC; Start 10/17/24 at 14:30; Stop 11/16/24 at 14:29 Ketorolac Tromethamine 15 mg Q6H PRN IV Last administered on 10/16/24at 05:17; Start 10/14/24 at 14:30; Stop 10/19/24 at 14:29 Famotidine 20 mg BID PO Last administered on 10/16/24at 07:58; Start 10/14/24 at 21:00; Stop 11/13/24 at 20:59 Tamsulosin HCl 0.4 mg DAILY PO Last administered on 10/16/24at 07:58; Start 10/15/24 at 09:00; Stop 11/14/24 at 08:59 Ferrous Fumarate 324 mg DAILY PRN PO; Start 10/14/24 at 14:30; Stop 11/13/24 at 14:29 Temazepam 15 mg HS PRN PO Last administered on 10/14/24at 20:04; Start 10/14/24 at 14:30; Stop 11/13/24 at 14:29 Ondansetron HCl 4 mg Q6H PRN IVP Last administered on 10/15/24at 09:40; Start 10/14/24 at 14:30; Stop 11/13/24 at 14:29 Calcium Carbonate 500 mg Q12H PRN PO; Start 10/14/24 at 14:30; Stop 11/13/24 at 14:29 Diphenhydramine HCl 25 mg Q6H PRN IVP; Start 10/14/24 at 14:30; Stop 11/13/24 at 14:29 Cefazolin Sodium 2 gm Q8H IVPB Last administered on 10/15/24at 04:17; Start 10/14/24 at 19:30; Stop 10/15/24 at 03:31; Status DC Docusate Sodium 100 mg BID PO Last administered on 10/16/24at 07:58; Start 10/14/24 at 21:00; Stop 11/13/24 at 20:59 Potassium Chloride 100 ml @ 100 mls/hr AD PRN IV; Start 10/14/24 at 14:30; S top 11/13/24 at 14:29 Potassium Chloride 20 meq AD PRN PO; Start 10/14/24 at 14:30; Stop 11/13/24 at 14:29 Potassium Chloride 20 meq AD PRN PO; Start 10/14/24 at 14:30; Stop 11/13/24 at 14:29 Oxycodone HCl 5 mg Q4H PRN PO; Start 10/14/24 at 14:30; Stop 10/14/24 at 14:28; Status DC Oxycodone HCl 10 mg Q4H PRN PO; Start 10/14/24 at 14:30; Stop 10/14/24 at 14:28; Status DC Naproxen 500 mg BID PO Last administered on 10/14/24at 20:04; Start 10/14/24 at 21:00; Stop 10/14/24 at 20:19; Status DC Aspirin 81 mg BID PO Last administered on 10/16/24at 07:59; Start 10/14/24 at 21:00; Stop 11/13/24 at 20:59 Meperidine HCl 25 mg STK-MED ONCE .ROUTE Last administered on 10/14/24at 15:12; Start 10/14/24 at 14:58; Stop 10/14/24 at 14:58; Status DC Meperidine HCl 50 mg STK-MED ONCE .ROUTE Last administered on 10/14/24at 15:18; Start 10/14/24 at 15:16; Stop 10/14/24 at 15:16; Status DC Fentanyl Citrate 100 mcg STK-MED ONCE .ROUTE Last administered on 10/14/24at 15:52; Start 10/14/24 at 15:50; Stop 10/14/24 at 15:50; Status DC Ondansetron HCl 4 mg STK-MED ONCE .ROUTE Last administered on 10/14/24at 15:54; Start 10/14/24 at 15:52; Stop 10/14/24 at 15:53; Status DC Albuterol Sulfate 2.5 mg Q6H PRN IH; Start 10/14/24 at 20:00; Stop 11/13/24 at 19:59 Hydroxyzine HCl 25 mg HS PO Last administered on 10/15/24at 19:40; Start 10/14/24 at 21:00; Stop 11/13/24 at 20:59 Losartan Potassium 50 mg BID PO Last administered on 10/16/24at 08:00; Start 10/14/24 at 21:00; Stop 11/13/24 at 20:59 Pantoprazole Sodium 40 mg HS PO Last administered on 10/15/24at 19:41; Start 10/14/24 at 21:00; Stop 11/13/24 at 20:59 Tamsulosin HCl 0.4 mg HS PO Last administered on 10/15/24at 19:40; Start 10/14/24 at 21:00; Stop 11/13/24 at 20:59 Clonazepam 0.5 mg HS PO Last administered on 10/15/24at 19:41; Start 10/14/24 at 21:00; Stop 11/13/24 at 20:59 Diphenhydramine HCl 25 mg HS PRN PO; Start 10/14/24 at 21:00; Stop 11/13/24 at 20:59 Hydrochlorothiazide 12.5 mg DAILY PO Last administered on 10/16/24at 08:00; Start 10/15/24 at 09:00; Stop 11/14/24 at 08:59 Propafenone HCl 225 mg BID PO Last administered on 10/16/24at 07:58; Start 10/14/24 at 21:00; Stop 11/13/24 at 20:59 Tramadol HCl 50 mg Q6H PRN PO Last administered on 10/14/24at 21:53; Start 10/14/24 at 20:30; Stop 10/19/24 at 20:29 Oxycodone HCl 5 mg Q4H PRN PO Last administered on 10/16/24at 08:01; Start 10/15/24 at 09:30; Stop 10/22/24 at 09:29 Oxycodone HCl 10 mg Q4H PRN PO Last administered on 10/16/24at 03:30; Start 1/24/25 at 09:30; Stop 10/22/24 at 09:29 JAMAAL GARCIA MD Oct 16, 2024 08:46
[2024-10-16] MEDS ORDERED: AEC81 PO (08:54)
[2024-10-16] MEDS ORDERED: NAPR-1196 PO (08:54)
--- NOTE | 2024-10-16 10:06 | NUR ---
IN AND OUT In and out done, with 1200ml clear yellow urine, Dr. Glass notified, no further orders given at this time.
--- NOTE | 2024-10-16 11:03 | NUR ---
Discharge Patient been discharge home, all discharge instructions given to patient, all questions answered, no concerns at this time. PICCO dressing changed prior to been discharge, report called in to Penelope HOLLINGSWORTH with [facility].
[2024-10-17] MEDS ORDERED: BisaCODYL 10 MG SUPP.RECT RC PRN (14:30)
== END 2024-10-16 11:50 | disposition home or self-care (01) ==
LOC: DAH 07:40 → DAHIP 07:41 → 4CH 17:10
PROVIDERS: ADMIT Orthopaedic Surgery; ATTEND Orthopaedic Surgery
DX: M17.12 Unilateral primary osteoarthritis, left knee (principal); G89.18 Other acute postprocedural pain; I48.91 Unspecified atrial fibrillation; I10 Essential (primary) hypertension; D62 Acute posthemorrhagic anemia; N40.1 Benign prostatic hyperplasia with lower urinary tract symptoms; R33.8 Other retention of urine; F41.9 Anxiety disorder, unspecified; K21.9 Gastro-esophageal reflux disease without esophagitis; J45.909 Unspecified asthma, uncomplicated; Z79.899 Other long term (current) drug therapy
CPT/HCPCS: 85025; 87086; 81001; 36415 ×2; 87641; 64447; 64445; 27447; 96365; 96375; 88311; 88305; 97161; 97530 ×6; 96376 ×2; 96366; 80048; 85027; 97116 ×2; G0378 ×40; A4663; J7120 ×2; A4600; J3010 ×3; J0690 ×4; J3490 ×5; J1100 ×2; J2003; J2250; J2704; J2405 ×6; J2710; J2175 ×2; J2795; J1885 ×6; J2371; J3370; A9272; A4649 ×3; A4930 ×2; C1713; C1776; A5120; A4215; A4223 ×2; A4222; A4221; A4216

== ENCOUNTER → 2025-04-27 | Outpatient (CLI) | payer OTHER ==
[~2025-04-27] MED LIST changes: +AEC81 PO; +NAPR-1196 PO; -PROP225T3 PO; +PROP225T8 PO; -TAMS-1 PO; +TAMS-55 PO
[2025-04-27 12:14] LABS: ASPARTATE AMINOTRANSFERASE 24.0 U/L (10-37); CREATININE 0.9 mg/dL (0.5-1.3); GLOMERULAR FILTR. RATE CALC 95.0 mL/min (>90); GLUCOSE,RANDOM 118.0 mg/dL (70-105); SODIUM SERUM 140.0 mmol/L (136-145); TOTAL PROTEIN, SERUM 7.1 g/dL (6.0-8.3); UREA NITROGEN, BLOOD 17.0 mg/dL (7-18)
== END | disposition home or self-care (01) ==
LOC: LAB 11:12
PROVIDERS: ATTEND Nurse Practitioner Family
DX: I10 Essential (primary) hypertension (principal); E78.00 Pure hypercholesterolemia, unspecified
CPT/HCPCS: 36415; 80053

== ENCOUNTER → 2025-04-28 | Outpatient (CLI) | payer OTHER ==
[~2025-04-28] MED LIST changes: +IOHEXOL 350 MG/ML 100ML INFUS..BTL IV ONE
--- NOTE | 2025-04-28 12:41 | HMCIMG ---
EXAM: CT Abdomen and Pelvis with Intravenous Contrast CLINICAL HISTORY: TECHNIQUE: Axial computed tomography images of the abdomen and pelvis with intravenous contrast. Dose reduction technique was used including one or more of the following: automated exposure control, adjustment of mA and kV according to patient size, and/or iterative reconstruction. CONTRAST: 98 mL of IV contrast. COMPARISON: None provided. FINDINGS: LUNG BASES: The lungs are unremarkable. LIVER: Unremarkable. GALLBLADDER AND BILE DUCTS: Unremarkable. No calcified stone. No ductal dilation. PANCREAS: Unremarkable. SPLEEN: Unremarkable. ADRENAL GLANDS: Unremarkable. KIDNEYS, URETERS, AND BLADDER: Symmetric excretion of contrast in both kidneys. No hydronephrosis or nephrolithiasis. No ureteral or bladder calculi. STOMACH AND BOWEL: No obstruction or gangrene in the umbilical hernia. Normal appendix. Sigmoid colon diverticulosis without diverticulitis. APPENDIX: Normal. PERITONEUM: No free fluid. No free air. LYMPH NODES: No lymphadenopathy. REPRODUCTIVE: Unremarkable as visualized. VASCULATURE: No aortic aneurysm. ABDOMINAL WALL AND SOFT TISSUES: Umbilical hernia containing mesenteric fat only. BONES: Mild degenerative changes of the lumbar spine. No fracture or suspicious osseous abnormality. IMPRESSION: 1. Umbilical hernia containing mesenteric fat only, without obstruction or gangrene. 2. Sigmoid colon diverticulosis without diverticulitis. /Holder
== END | disposition home or self-care (01) ==
LOC: RAH 09:37
PROVIDERS: ATTEND Nurse Practitioner Family
DX: K57.30 Diverticulosis of large intestine without perforation or abscess without bleeding (principal); K42.9 Umbilical hernia without obstruction or gangrene; M47.816 Spondylosis without myelopathy or radiculopathy, lumbar region
CPT/HCPCS: 74178; Q9967